=== PATIENT | female | born 1995 | race Caucasian/White ===

== ENCOUNTER 2017-01-13 05:50 | Emergency (ER) | payer OTHER ==
--- NOTE | 2017-01-13 07:25 | ER NURSING DOCUMENTATION ---
Nurse's Notes [facility] Name:Anuja Velasco Age:21 yrs Sex:Female :1995 Arrival Date:01/13/2017 Time:05:50 Bed3 Private MD:Physician, No Diagnosis:Pharyngitis Exudative Presentation: 01/13 05:52 Acuity: ARIANA 3 bw2 06:03 Presenting complaint: Patient states: pt states shes had a fever since yesterday. bw2 complains of a sore throat. Transition of care: patient was not received from another setting of care. 06:03 Method Of Arrival: Walk In bw2 Triage Assessment: 06:04 General: Appears in no apparent distress, Behavior is appropriate for age. Pain: bw2 Complains of pain in throat. Respiratory: No deficits noted. Breath sounds are clear bilaterally. Respiratory: Reports. Derm: No deficits noted. Skin is intact, is healthy with good turgor. Historical: - Allergies: No known drug Allergies; - Tetanus: < 10 years. - Ebola Screening: : Patient negative for fever greater than or equal to 101.5 degrees Fahrenheit, and additional compatible Ebola Virus Disease symptoms. Patient denies exposure to infectious person. Patient denies travel to an Ebola-affected area in the 21 days before illness onset. No symptoms or risks identified at this time. . - Immunization history: Flu Vaccine < 1 year. - Social history: Smoking status: Patient states was never smoker of tobacco. Screenin:09 Infectious Disease Risk None. Abuse screen: Denies threats or abuse. Nutritional bw2 screening: No deficits noted. Assessment: 06:08 See Triage Assessment done by same RN. EENT: Throat is reddened Reports pain when bw2 swallowing. Respiratory: Airway is patent Respiratory effort is even, unlabored. Derm: No deficits noted. Vital Signs: 06:04 BP 123 / 81; Pulse 110; Resp 19; Temp 100.8(O); Pulse Ox 96% on R/A; Weight 63.5 kg bw2 (R); Height 5 ft. 6 in. (167.64 cm); Pain 5/10; 07:18 BP 134 / 72; Pulse 96; Resp 16; Temp 100.8; Pulse Ox 95% on R/A; Pain 5/10; lc 06:04 Body Mass Index 22.60 (63.50 kg, 167.64 cm) 2 07:18 took tylenol and ibuprofen earlier ED Course: 05:52 Patient arrived in ED. ma1 05:52 Physician, Landy is Private Physician. ma1 05:52 Selma Pace is Primary Nurse. bw2 05:52 Triage completed. bw2 06:05 Notified ED Physician of patient's arrival and chief complaint. Dr. Trotter notified. bw2 06:09 Valuables Remains with patient Patient has correct armband on for positive bw2 identification. Bed in low position. Side rails up X2. 06:22 Rocky Trotter MD is Attending Physician. ga 07:23 Labs drawn. (by ED staff). Sent per order to lab. Administered Medications: No medications were administered Outcome: : Discharge ordered by . ga 07:22 Discharged to home ambulatory. 07:22 Condition: stable 07:22 Discharge Assessment: Patient awake, alert and oriented x 3. No cognitive and/or functional deficits noted. Patient verbalized understanding of disposition instructions. 07:22 Discharge instructions given to patient, Instructed on discharge instructions, follow up and referral plans. medication usage, Demonstrated understanding of instructions, medications, Prescriptions given X 1. 07:24 Patient left the ED. 01/14 17:05 Discharge F/U Call: Spoke with: patient. other: Name: pt is feeling a little better st today. she still has a sore throat but she is able to drink and the fever is gone. Signatures: Jenni Dubois RN RN st Coleman, Linda, RN RN lc Chew, Scott, MD MD sc Wisely, Beth bw2 FaulkDanuta seaman [facility]
--- NOTE | 2017-01-13 07:25 | ER PHYSICIAN DOCUMENTATION ---
Physician Documentation [facility] Name:Anuja Velasco Age:21 yrs Sex:Female :1995 Arrival Date:01/13/2017 Time:05:50 Bed3 Private MD:Physician, No ED Rocky Simms Disposition: 01/13/17 07:19 Discharged to Home/Self Care. Impression: Pharyngitis Exudative. - Condition is Good. - Discharge Instructions: PHARYNGITIS, Strep (Presumed). - Prescriptions for Amoxicillin 500 mg Oral Capsule - take 1 capsule by ORAL route every 8 hours for 10 days; 30 tablet. - Medical Reconciliation form form. - Follow up: Private Physician; When: As needed; Reason: Worsening of condition. - Problem is new. - Symptoms are unchanged. HPI: 01/13 07:16 This 21 yrs old Female presents to ER via Walk In with complaints of Fever, sc Sore Throat. 07:16 The patient reports fever, that was measured at 106 degrees Fahrenheit. Onset: The sc symptom(s)/episode began/occurred 1 day(s) ago. Associated signs and symptoms: Pertinent positives: chills, myalgias, Pertinent negatives: night sweats, runny nose, sinus congestion, shortness of breath. Severity of symptoms: At their worst the symptoms were moderate. The patient has experienced similar episodes in the past, multiple times. Historical: - Allergies: No known drug Allergies; - Tetanus: < 10 years. - Ebola Screening: : Patient negative for fever greater than or equal to 101.5 degrees Fahrenheit, and additional compatible Ebola Virus Disease symptoms. Patient denies exposure to infectious person. Patient denies travel to an Ebola-affected area in the 21 days before illness onset. No symptoms or risks identified at this time. . - Immunization history: Flu Vaccine < 1 year. - Social history: Smoking status: Patient states was never smoker of tobacco. ROS: 07:17 Eyes: Negative for injury, pain, redness, and discharge. sc Cardiovascular: Negative for chest pain, palpitations, and edema. Respiratory: Negative for shortness of breath, cough, wheezing, and pleuritic chest pain. Abdomen/GI: Negative for abdominal pain, nausea, vomiting, diarrhea, and constipation. Back: Negative for injury and pain. Skin: Negative for injury, rash, and discoloration. 07:17 Neuro: Negative for headache, weakness, numbness, tingling, and seizure. sc 07:17 Constitutional: Positive for chills, fever. 07:17 ENT: Positive for sore throat. Exam: Head/Face: Normocephalic, atraumatic. Eyes: Pupils equal round and reactive to light, extra-ocular motions intact. Lids and lashes normal. Conjunctiva and sclera are non-icteric and not injected. Cornea within normal limits. Periorbital areas with no swelling, redness, or edema. Chest/axilla: Normal chest wall appearance and motion. Nontender with no deformity. No lesions are appreciated. Cardiovascular: Regular rate and rhythm with a normal S1 and S2. No gallops, murmurs, or rubs. Normal PMI, no JVD. No pulse deficits. Respiratory: Lungs have equal breath sounds bilaterally, clear to auscultation and percussion. No rales, rhonchi or wheezes noted. No increased work of breathing, no retractions or nasal flaring. Abdomen/GI: Soft, non-tender, with normal bowel sounds. No distension or tympany. No guarding or rebound. No evidence of tenderness throughout. Skin: Warm, dry with normal turgor. Normal color with no rashes, no lesions, and no evidence of cellulitis. 07:17 Neuro: Awake and alert, GCS 15, oriented to person, place, time, and situation. la Cranial nerves II-XII grossly intact. Motor strength 5/5 in all extremities. Sensory grossly intact. Cerebellar exam normal. Normal gait. 07:17 Constitutional: The patient appears alert, awake, febrile. 07:17 ENT: Posterior pharynx: erythema, exudate. Vital Signs: 06:04 BP 123 / 81; Pulse 110; Resp 19; Temp 100.8(O); Pulse Ox 96% on R/A; Weight 63.5 kg bw2 (R); Height 5 ft. 6 in. (167.64 cm); Pain 5/10; 07:18 BP 134 / 72; Pulse 96; Resp 16; Temp 100.8; Pulse Ox 95% on R/A; Pain 5/10; lc 06:04 Body Mass Index 22.60 (63.50 kg, 167.64 cm) bw2 07:18 took tylenol and ibuprofen earlier rebeca MDM: 06:22 Patient medically screened. la 07:18 Differential diagnosis: viral Infection, bacterial infection, URI. Data reviewed: vital sc signs, nurses notes, lab test result(s), and as a result, I will discharge patient. Counseling: I had a detailed discussion with the patient and/or guardian regarding: the historical points, exam findings, and any diagnostic results supporting the discharge/admit diagnosis, lab results, the need for outpatient follow up. 01/13 06:38 Order name: RAPID STREP SCRN CUL IF NEG; Complete Time: 06:40 EDMS 01/13 06:40 Interpretation: Normal. la 01/13 07:05 Order name: MONOSCREEN; Complete Time: 07:19 EDMS 01/13 07:19 Interpretation: Normal. la 01/14 08:07 Order name: THROAT FOR BETA STREP EDMS Dispensed Medications: No medications were administered Signatures: Elza Love RN RN lc Chew, Scott, MD MD la Shawna Paceh bw2
== END 2017-01-13 07:25 | disposition home or self-care (01) ==
LOC: ER 05:50
DX: J02.9 Acute pharyngitis, unspecified (principal); R50.9 Fever, unspecified
CPT/HCPCS: 86308; 86403; 87081; 87880; 99283